=== PATIENT | male | born 1955 | race Caucasian/White ===

== ENCOUNTER 2022-12-18 09:34 | Outpatient (CLI) | payer MEDICARE, OTHER, SELFPAY ==
--- NOTE | 2022-12-18 09:40 | RAD_ITS ---
PROCEDURE: Fluoroscopic guided left hip joint aspiration. DATE: 12/18/2022 INDICATION: 67-year-old male with left hip pain and concerns for left hip joint effusion. COMPARISON: None. PHYSICIAN: Shantanu Price D.O. MEDICATIONS: 5 cc of 2% lidocaine was administered subcutaneously for local anesthesia. ACCESS SITE: Left hip NEEDLE: 22-gauge spinal needle. FLUOROSCOPY TIME (if supplied): 3 seconds. 2.4 mGy. IMAGES: 1 single fluoroscopic spot image was obtained. FINDINGS: The risks, benefits, and alternatives to the procedure were explained to the patient. The specific risks of bleeding, infection, and neurovascular injury were detailed and accepted. Witnessed informed consent was obtained. Needle placement site in the left hip was selected utilizing fluoroscopy. The area was then prepared with usual sterile technique utilizing iodine prep. 5 cc of 2% lidocaine was administered locally utilizing a 25-gauge injection needle. A 22-gauge spinal needle was then placed into the left hip joint cavity utilizing periodic fluoroscopic guidance. No fluid was aspirated from the joint space immediately post needle placement. Placement of the needle into the joint space was then confirmed by injecting 2 cc of 50:50 normal saline/Isovue 300 contrast mixture. Attempt was made to aspirate from the joint space which again yielded no return of fluid. Approximately 6 cc of normal saline was then injected into the joint space. Approximately 6 cc of fluid was reaspirated and sent to laboratory for additional testing. The needle was then removed. The patient tolerated the procedure well without any immediate complications. The patient was discharged home in stable condition. RAD/Inj/Asp Gianluca Jt Should/Hip/Knee IMPRESSION: Fluoroscopic guided left hip aspiration as detailed above. Electronically Signed: Shantanu Price DO at 15:44 EDT ,
[2022-12-18] MEDS: Lidocaine 2% (5ml sdv) 5 ML VIAL.MPF INFILT (10:08)
[2022-12-18 10:34] LABS: Pathologist Comment May follow
[2022-12-18 12:07] LABS: Synovial Fld Mononuclear WBC % 86.4 %; Synovial Fld Polynuclear WBC # 0.011 10^3/uL; Synovial Fld Polynuclear WBC % 13.6 %
[2022-12-18 12:30] LABS: AUTO B FLUID DILUENT BKGD CT WBC <0.1 RBC <0.01 (W<.1,R<.01); Source / Synovial Fluid HIP; Source- Body Fluid SYNOVIAL
[2022-12-18 12:31] LABS: Appearance /Synovial Fluid Clear (CLEAR)
[2022-12-18 13:20] LABS: CRYSTALS, BODY FLUID See PATH REV
[2022-12-18 13:32] LABS: RBC /Synovial Fluid 3 /mm3 (0)
[2022-12-18 13:50] LABS: Body Fluid QC Type(s) BF1Q,BF2Q; Lymph 70 %; Monocyte /Synovial Fluid 20 %; Other Cell /Synovial Fluid 10 %
[2022-12-22 09:18] LABS: Pathologist Review Will follow
== END 2022-12-18 23:59 | disposition home or self-care (01) ==
LOC: RAD 09:39
PROVIDERS: PCP Family Medicine; Referring Provider Physician Assistant; Visit Provider Physician Assistant
DX: M25.452 Effusion, left hip (principal); M16.12 Unilateral primary osteoarthritis, left hip
CPT/HCPCS: 20610; 77002; 87070; 87075; 87205; 89050; 89051; 89060